=== PATIENT | male | born 1985 | race Two or more races ===

== ENCOUNTER 2024-02-01 18:43 | Emergency (ER) | payer OTHER ==
[~2024-02-01] VITALS: Ht 165.1 cm; Wt 86.4 kg
[2024-02-01 18:55] VITALS: TEMP 98.6
[2024-02-01 20:00] VITALS: BP 116/75; PULSE 78; RESP 18
[2024-02-02] MEDS: CEPHALEXIN MONOHYDRATE 500 MG CAPSULE PO ONE (01:06)
[2024-02-02] MEDS: PERTUSS(ACELL),DIPH,TET/PF 0.5 ML SYRINGE [ADULT] IM. ONE (01:06)
[2024-02-02] MEDS ORDERED: SULF-261 PO (01:56)
[2024-02-02] MEDS ORDERED: IBUP-1492 PO (01:56)
[2024-02-02] MEDS ORDERED: CEPH-558 PO (01:56)
== END 2024-02-02 02:42 | disposition home or self-care (01) ==
LOC: EMS 18:48
DX: S51.832A Puncture wound without foreign body of left forearm, initial encounter (principal); W26.8XXA Contact with other sharp object(s), not elsewhere classified, initial encounter; Y93.89 Activity, other specified; Y92.89 Other specified places as the place of occurrence of the external cause; Y99.8 Other external cause status
CPT/HCPCS: 90471; 90715; 99283